=== PATIENT | female | born 1950 | race Caucasian/White ===

== ENCOUNTER → 2017-08-09 | Outpatient (CLI) | payer BC, MEDICARE ==
[~2017-08-09] MED LIST: ALLO100 PO; ALLO300 PO; ALPR.25 PO; ALPR.5 PO; Apidra Sol100 UNIT/1; Apidra100 UNIT/2 SC; CIPR500 PO; Crestor20 MG PO; DULO30 PO; ENOX40I SC; HYDACE5 PO; Humalog Mi100 UNIT/5 SC; INSULANPEN; METO100ER PO; ONDA4ODT MM; OXYC5 PO; RAMI5; RAMI5 PO; ROSU10TA PO; RXHYDACE PO; Ramipril10 MG PO; SERT100; SOLI5 PO; TOUJEO SOL300 UNIT/1 SC; VENL150ER PO; VENL75ER PO; XARELTO20 MG PO
[2017-08-09 11:55] LABS: BASOPHILS ABSOLUTE AUTO 0.04 K/mm3 (0.00-0.23); BASOPHILS PERCENT AUTO 1 % (0-2); EOSINOPHILS ABSOLUTE AUTO 0.17 K/mm3 (0.00-0.68); EOSINOPHILS PERCENT AUTO 3 % (0-6); Hematocrit 41.8 % (33.0-51.0); IMMATURE GRAN ABSOLUTE AUTO 0.03 K/mm3 (0.00-0.10); IMMATURE GRAN PERCENT AUTO 0 % (0-1); LYMPHOCYTES ABSOLUTE AUTO 1.47 K/mm3 (0.84-5.20); LYMPHOCYTES PERCENT AUTO 22 % (21-46); MONOCYTES ABSOLUTE AUTO 0.56 K/mm3 (0.16-1.47); MONOCYTES PERCENT AUTO 8 % (4-13); Mean Corpuscular HGB 30.8 pg (26.0-34.0); Mean Corpuscular HGB Conc 33.5 g/dL (31.5-36.5); Mean Corpuscular Volume 92 fL (80-100); Mean Platelet Volume 12.8 fL (9.1-12.4); NEUTROPHILS ABSOLUTE AUTO 4.55 K/mm3 (1.96-9.15); NEUTROPHILS PERCENT AUTO 67 % (41-73); Platelet Count 219 K/mm3 (150-400); RDW Coefficient Variation 14.2 % (11.7-14.2); RDW Standard Deviation 47.5 fL (35.1-46.3); Red Blood Cell Count 4.55 M/mm3 (3.80-5.20); White Blood Cell Count 6.82 K/mm3 (4.00-11.30)
[2017-08-09 12:13] LABS: Anion Gap 10 mmol/L (6-16); Blood Urea Nitrogen 21 mg/dL (8-24); Bun/Creatinine Ratio 18.6 (12.0-20.0); CO2, Blood 25 mmol/L (21-32); Calcium, Blood 9.6 mg/dL (8.5-10.1); Chloride, Blood 105 mmol/L (98-108); Creatinine, Blood 1.13 mg/dL (0.40-1.00); Glomerular Filtration Rate 48 (60-); Glucose, Blood 126 mg/dL (70-99); Potassium, Blood 5.2 mmol/L (3.5-5.5); Sodium, Blood 140 mmol/L (136-145); Thyroid Stimulating Hormone 3.221 uIU/mL (0.360-4.800); Troponin I <0.017 ng/mL (0.000-0.040)
== END | disposition home or self-care (01) ==
LOC: LAB EV 11:49
PROVIDERS: Family Medicine
DX: I48.91 Unspecified atrial fibrillation (principal)
CPT/HCPCS: 80048; 83880; 84443; 84484; 85025

== ENCOUNTER → 2017-09-14 | Outpatient (CLI) | payer BC, MEDICARE ==
[~2017-09-14] MED LIST changes: -ALPR.5 PO; -Crestor20 MG PO; -Humalog Mi100 UNIT/5 SC; -VENL150ER PO; -XARELTO20 MG PO
[2017-09-14 14:46] LABS: Source, Urine Clean Catch
[2017-09-14 15:07] LABS: Bacteria Mod /hpf; Red Blood Cells, Urine 0-2 /hpf (0-2); Squamous Epithelial Cells Many /hpf (Few)
== END | disposition home or self-care (01) ==
LOC: LAB SHORT 14:44 → LAB EV 14:44
PROVIDERS: Physician Assistant
DX: R30.0 Dysuria (principal)
CPT/HCPCS: 81015; 87077; 87086; 87186

== ENCOUNTER → 2018-01-19 | Outpatient (CLI) | payer BC, MEDICARE | LOC: LAB EV 16:15 → LAB SHORT 16:15 | DX: N39.0 Urinary tract infection, site not specified (principal) | CPT/HCPCS: 87077; 87086; 87186 ==

== ENCOUNTER → 2018-02-11 | Outpatient (CLI) | payer BC, MEDICARE | END | disposition home or self-care (01) | LOC: LAB SHORT 17:45 → LAB EV 17:45 | DX: N39.0 Urinary tract infection, site not specified (principal) | CPT/HCPCS: 87086 ==

== ENCOUNTER → 2018-02-24 | Outpatient (CLI) | payer BC, MEDICARE | END | disposition home or self-care (01) | LOC: PLD 07:25 → LAB SHORT 07:25 | DX: D22.39 Melanocytic nevi of other parts of face (principal); L82.1 Other seborrheic keratosis | CPT/HCPCS: 88305 ==

== ENCOUNTER → 2018-05-13 | Outpatient (CLI) | payer BC, MEDICARE ==
[~2018-05-13] MED LIST changes: +ALPR.5 PO; +Crestor20 MG PO; +Humalog Mi100 UNIT/5 SC; +VENL150ER PO; +XARELTO20 MG PO
== END | disposition home or self-care (01) ==
LOC: LAB EV 14:15 → LAB SHORT 14:15
DX: R30.0 Dysuria (principal)
CPT/HCPCS: 87077; 87086; 87186

== ENCOUNTER 2018-05-16 09:52 | Day surgery (SDC) | payer BC, MEDICARE ==
[~2018-05-16] VITALS: Ht 177.8 cm; Wt 146.5 kg
[~2018-05-16 09:52] MED LIST changes: -Humalog Mi100 UNIT/5 SC; -VENL150ER PO; -XARELTO20 MG PO
[2018-05-16] MEDS ORDERED: VENL150ER PO (10:36)
[2018-05-16] MEDS ORDERED: Humalog Mi100 UNIT/5 SC (10:38)
[2018-05-16] MEDS ORDERED: XARELTO20 MG PO (10:39)
== END 2018-05-16 12:55 | disposition home or self-care (01) ==
LOC: ORSCSDS 09:52
PROVIDERS: Orthopaedic Surgery
PROC: 01N50ZZ Release Median Nerve, Open Approach (ICD-10-PCS; principal; 2018-05-16 11:15)
DX: G56.02 Carpal tunnel syndrome, left upper limb (principal); G47.33 Obstructive sleep apnea (adult) (pediatric); I10 Essential (primary) hypertension; E11.9 Type 2 diabetes mellitus without complications; E66.01 Morbid (severe) obesity due to excess calories; Z68.42 Body mass index [BMI] 45.0-49.9, adult; Z79.899 Other long term (current) drug therapy
CPT/HCPCS: 82947; J0690; J2250; J3010; J7120

== ENCOUNTER → 2018-08-07 | Outpatient (CLI) | payer BC, MEDICARE ==
[~2018-08-07] MED LIST changes: +Humalog Mi100 UNIT/5 SC; +VENL150ER PO; +XARELTO20 MG PO
== END ==
LOC: LAB SHORT 09:59 → LAB EV 09:59
DX: N39.0 Urinary tract infection, site not specified (principal)
CPT/HCPCS: 87077; 87086; 87186

== ENCOUNTER → 2019-04-14 | Outpatient (CLI) | payer BC, MEDICARE ==
[2019-04-16 15:08] LABS: HPV 16 Negative (Negative); HPV 18 Negative (Negative); HPV OTHER HR TYPES Negative (Negative)
== END | disposition home or self-care (01) ==
LOC: LAB 11:45 → LAB SHORT 11:45
PROVIDERS: Obstetrics & Gynecology
DX: Z01.419 Encounter for gynecological examination (general) (routine) without abnormal findings (principal)
CPT/HCPCS: 87624; G0123

== ENCOUNTER → 2019-05-28 | Outpatient (CLI) | payer BC, MEDICARE | END | disposition home or self-care (01) | LOC: LAB EV 15:55 → LAB SHORT 15:55 | DX: R30.0 Dysuria (principal); R30.9 Painful micturition, unspecified | CPT/HCPCS: 87077; 87086; 87186 ==

== ENCOUNTER → 2019-08-28 | Outpatient (CLI) | payer BC, MEDICARE | END | disposition home or self-care (01) | LOC: LAB SHORT 16:29 → LAB EV 16:29 | DX: R30.9 Painful micturition, unspecified (principal) | CPT/HCPCS: 87077; 87086; 87186 ==

== ENCOUNTER → 2019-09-16 | Outpatient (CLI) | payer BC, MEDICARE | END | disposition home or self-care (01) | LOC: LAB EV 18:01 → LAB SHORT 18:01 | DX: R30.0 Dysuria (principal) | CPT/HCPCS: 87086 ==

== ENCOUNTER → 2019-11-05 | Outpatient (CLI) | payer BC, MEDICARE | END | disposition home or self-care (01) | LOC: LAB EV 18:08 → LAB SHORT 18:08 | DX: N39.0 Urinary tract infection, site not specified (principal) | CPT/HCPCS: 87077; 87086; 87186 ==

== ENCOUNTER → 2020-03-16 | Outpatient (CLI) | payer BC, MEDICARE | END | disposition home or self-care (01) | LOC: LAB SHORT 10:50 → LAB EV 10:50 | DX: N39.0 Urinary tract infection, site not specified (principal) | CPT/HCPCS: 87077; 87086; 87186 ==

== ENCOUNTER 2020-06-17 10:51 | Day surgery (SDC) | payer BC, MEDICARE ==
[~2020-06-17] VITALS: Ht 177.8 cm; Wt 141.3 kg
[2020-06-17] MEDS ORDERED: DULO60 (12:16)
== END 2020-06-17 13:40 | disposition home or self-care (01) ==
LOC: ORSCSDS 10:51
PROVIDERS: Internal Medicine Gastroenterology
PROC: 0DBM8ZX Excision of Descending Colon, Via Natural or Artificial Opening Endoscopic, Diagnostic (ICD-10-PCS; principal; 2020-06-17 12:00)
DX: R19.7 Diarrhea, unspecified (principal); Z86.010 Personal history of colon polyps; D12.4 Benign neoplasm of descending colon; K57.30 Diverticulosis of large intestine without perforation or abscess without bleeding; K64.8 Other hemorrhoids; I10 Essential (primary) hypertension; K21.9 Gastro-esophageal reflux disease without esophagitis; I48.91 Unspecified atrial fibrillation; E11.9 Type 2 diabetes mellitus without complications; E66.01 Morbid (severe) obesity due to excess calories; Z68.41 Body mass index [BMI] 40.0-44.9, adult; Z79.4 Long term (current) use of insulin; Z79.899 Other long term (current) drug therapy
CPT/HCPCS: 82947; 88305; J2704; J7120

== ENCOUNTER 2020-09-15 23:59 | Emergency (ER) | payer BC, MEDICARE ==
[~2020-09-15] VITALS: Ht 177.8 cm; Wt 136.1 kg
[~2020-09-15 23:59] MED LIST changes: +DULO60
== END 2020-09-16 00:46 | disposition home or self-care (01) ==
LOC: ER 23:59
DX: S60.453A Superficial foreign body of left middle finger, initial encounter (principal); I10 Essential (primary) hypertension; E11.9 Type 2 diabetes mellitus without complications; E78.5 Hyperlipidemia, unspecified; E03.9 Hypothyroidism, unspecified; Z88.2 Allergy status to sulfonamides; Z88.6 Allergy status to analgesic agent; Z88.5 Allergy status to narcotic agent; Z79.4 Long term (current) use of insulin; Z88.1 Allergy status to other antibiotic agents; W45.8XXA Other foreign body or object entering through skin, initial encounter
CPT/HCPCS: 99282

== ENCOUNTER → 2021-01-24 | Outpatient (CLI) | payer BC, MEDICARE ==
[2021-01-24 16:50] LABS: Source, Urine Voided
[2021-01-24 17:43] LABS: Appearance, Urine Clear (Clear); Bilirubin, Urine Neg (Neg); Blood, Urine Neg (Neg); Color, Urine Yellow (P-Yellow); Glucose Qualitative, Urine Neg (Neg); Ketones, Urine Neg (Neg); Leukocyte Esterase, Urine 1+ (Neg); Nitrite, Urine Neg (Neg); Protein, Urine 2+ (Neg); Urobilinogen, Urine NORM (Normal)
[2021-01-24 17:52] LABS: Bacteria Many /hpf
[2021-01-24 17:53] LABS: Red Blood Cells, Urine Rare /hpf (0-2); Squamous Epithelial Cells Mod /hpf (Few); White Blood Cells, Urine 0-2 /hpf (0-5)
== END ==
LOC: LAB SHORT 16:48 → LAB 16:48
PROVIDERS: Family Medicine
DX: R30.0 Dysuria (principal)
CPT/HCPCS: 81001; 87086

== ENCOUNTER → 2021-11-02 | Outpatient (CLI) | payer OTHER, MEDICARE | END | disposition home or self-care (01) | LOC: LAB 16:31 → LAB SHORT 16:31 | DX: R39.15 Urgency of urination (principal) | CPT/HCPCS: 87077; 87086; 87186 ==

== ENCOUNTER 2022-02-24 17:34 | Emergency (ER) | payer OTHER, MEDICARE ==
[~2022-02-24] VITALS: Ht 177.8 cm; Wt 141.5 kg
== END 2022-02-24 21:01 | disposition home or self-care (01) ==
LOC: ER 17:34
DX: N93.9 Abnormal uterine and vaginal bleeding, unspecified (principal); I10 Essential (primary) hypertension; E11.9 Type 2 diabetes mellitus without complications; E78.5 Hyperlipidemia, unspecified; Z88.2 Allergy status to sulfonamides; Z88.5 Allergy status to narcotic agent; Z88.1 Allergy status to other antibiotic agents; Z88.8 Allergy status to other drugs, medicaments and biological substances; Z88.6 Allergy status to analgesic agent; Z79.899 Other long term (current) drug therapy; Z79.4 Long term (current) use of insulin; Z79.01 Long term (current) use of anticoagulants
CPT/HCPCS: 36415; 76830; 76856; 86850; 86900; 86901; 99284-25; J7030

== ENCOUNTER → 2022-02-24 | Outpatient (CLI) | payer OTHER, MEDICARE ==
[2022-02-24 16:49] LABS: BASOPHILS ABSOLUTE AUTO 0.07 K/mm3 (0.00-0.23); BASOPHILS PERCENT AUTO 1 % (0-2); EOSINOPHILS ABSOLUTE AUTO 0.16 K/mm3 (0.00-0.68); EOSINOPHILS PERCENT AUTO 2 % (0-6); Hematocrit 41.9 % (33.0-51.0); Hemoglobin 13.8 g/dL (11.5-16.0); IMMATURE GRAN ABSOLUTE AUTO 0.04 K/mm3 (0.00-0.10); IMMATURE GRAN PERCENT AUTO 1 % (0-1); LYMPHOCYTES PERCENT AUTO 30 % (21-46); MONOCYTES ABSOLUTE AUTO 0.66 K/mm3 (0.16-1.47); MONOCYTES PERCENT AUTO 9 % (4-13); Mean Corpuscular HGB Conc 32.9 g/dL (31.5-36.5); Mean Corpuscular Volume 94 fL (80-100); Mean Platelet Volume 12.4 fL (9.1-12.4); NEUTROPHILS ABSOLUTE AUTO 4.35 K/mm3 (1.96-9.15); NEUTROPHILS PERCENT AUTO 58 % (41-73); Platelet Count 192 K/mm3 (150-400); RDW Coefficient Variation 13.8 % (11.7-14.2); RDW Standard Deviation 47.3 fL (35.1-46.3); Red Blood Cell Count 4.45 M/mm3 (3.80-5.20); White Blood Cell Count 7.58 K/mm3 (4.00-11.30)
[2022-02-24 17:06] LABS: Albumin, Blood 3.2 g/dL (3.4-5.0); Albumin/Globulin Ratio 0.7 (0.8-1.8); Bilirubin, Total 0.7 mg/dL (0.1-1.0); Bun/Creatinine Ratio 18.4 (12.0-20.0); Calcium, Blood 9.3 mg/dL (8.5-10.1); Creatinine, Blood 1.85 mg/dL (0.40-1.00); Globulin, Blood 4.6 g/dL (2.2-4.0); Thyroid Stimulating Hormone 2.745 uIU/mL (0.360-4.800); Total Protein, Blood 7.8 g/dL (6.4-8.2)
== END | disposition home or self-care (01) ==
LOC: LAB 16:44 → LAB SHORT 16:44
PROVIDERS: Physician Assistant
DX: R53.83 Other fatigue (principal)
CPT/HCPCS: 80053; 84443; 85025; 87077; 87086; 87186

== ENCOUNTER → 2022-02-28 | Outpatient (CLI) | payer OTHER, MEDICARE | END | disposition home or self-care (01) | LOC: LAB 12:41 → LAB SHORT 12:41 | DX: N95.0 Postmenopausal bleeding (principal) | CPT/HCPCS: 88305 ==

== ENCOUNTER → 2022-06-05 | Outpatient (CLI) | payer OTHER, MEDICARE | END | disposition home or self-care (01) | LOC: LAB 17:40 → LAB SHORT 17:40 | DX: N39.0 Urinary tract infection, site not specified (principal) | CPT/HCPCS: 87077; 87086; 87147; 87186 ==

== ENCOUNTER → 2022-09-12 | Outpatient (CLI) | payer OTHER, MEDICARE | END | disposition home or self-care (01) | LOC: LAB SHORT 19:02 → LAB 19:02 | DX: R30.0 Dysuria (principal) | CPT/HCPCS: 87077; 87086; 87186 ==

== ENCOUNTER → 2023-05-07 | Outpatient (CLI) | payer OTHER, MEDICARE ==
[2023-05-07 15:04] LABS: Creatinine, Urine Random 60.4 mg/dL (27.00-270.00); Protein, Urine Random 14.3 mg/dL (0.0-11.9); Protein/Creat Ratio, Ur Random 0.2
== END ==
LOC: LAB SHORT 08:00 → LAB 08:00
PROVIDERS: Internal Medicine Nephrology
DX: N18.32 Chronic kidney disease, stage 3b (principal)
CPT/HCPCS: 82570; 84156

== ENCOUNTER → 2024-02-27 | Outpatient (CLI) | payer OTHER ==
[2024-02-27 10:09] LABS: Source, Urine Clean Catch
[2024-02-27 10:53] LABS: Bilirubin, Urine Neg (Neg); Blood, Urine 2+ (Neg); Glucose Qualitative, Urine Neg (Neg); Ketones, Urine Neg (Neg); Leukocyte Esterase, Urine Neg (Neg); Nitrite, Urine Neg (Neg); Protein, Urine Neg (Neg); Specific Gravity, Urine 1.015 (1.003-1.022); Urobilinogen, Urine NORM (Normal)
[2024-02-27 11:52] LABS: Appearance, Urine Hazy (Clear); Color, Urine Yellow (P-Yellow)
[2024-02-27 11:53] LABS: Bacteria Few /hpf; Squamous Epithelial Cells Few /hpf (Few); White Blood Cells, Urine 0-2 /hpf (0-5)
== END | disposition home or self-care (01) ==
LOC: LAB SHORT 10:05 → LAB 10:05
PROVIDERS: Hospitalist
DX: R82.90 Unspecified abnormal findings in urine (principal)
CPT/HCPCS: 81001; 87086

== ENCOUNTER 2025-02-16 13:12 | Day surgery (SDC) | payer OTHER, MEDICARE ==
[~2025-02-16 13:12] MED LIST changes: +Glycopyrrolate 0.2 MG/ML 1MLVIAL ONE; +Ondansetron HCl 2 MG / ML 2ML Vial ONE; +SOAANZ20 M1; +ePHEDrine Sulfate 50 MG/ML 1ML Injection ONE
[2025-02-16] MEDS ORDERED: TOUJEO MAX300 UNIT/2 (14:09)
[2025-02-16] MEDS ORDERED: MOUNJARO2.5 MG/0.5 (14:11)
[2025-02-16] MEDS ORDERED: DUPIXENT300 MG/21 (14:12)
[2025-02-16] MEDS ORDERED: OXYB5 (14:13)
[2025-02-16] MEDS ORDERED: CALC.25 (14:13)
[2025-02-16] MEDS ORDERED: FIASP 100100 UNIT/3 (14:14)
[2025-02-16 15:33] VITALS: BP 97/60
== END 2025-02-16 15:50 | disposition home or self-care (01) ==
LOC: ORSCSDS 13:12
PROVIDERS: Specialist
PROC: 0DB98ZX Excision of Duodenum, Via Natural or Artificial Opening Endoscopic, Diagnostic (ICD-10-PCS; principal; 2025-02-16 15:00)
PROC: 0DJD8ZZ Inspection of Lower Intestinal Tract, Via Natural or Artificial Opening Endoscopic (ICD-10-PCS; principal; 2025-02-16 15:00)
PROC: 0D758ZZ Dilation of Esophagus, Via Natural or Artificial Opening Endoscopic (ICD-10-PCS; principal; 2025-02-16 15:00)
PROC: 0DB58ZX Excision of Esophagus, Via Natural or Artificial Opening Endoscopic, Diagnostic (ICD-10-PCS; principal; 2025-02-16 15:00)
PROC: 0DB78ZX Excision of Stomach, Pylorus, Via Natural or Artificial Opening Endoscopic, Diagnostic (ICD-10-PCS; principal; 2025-02-16 15:00)
DX: K21.9 Gastro-esophageal reflux disease without esophagitis (principal); R13.10 Dysphagia, unspecified; K29.70 Gastritis, unspecified, without bleeding; K44.9 Diaphragmatic hernia without obstruction or gangrene; Z12.11 Encounter for screening for malignant neoplasm of colon; Z86.0101 Personal history of adenomatous and serrated colon polyps; K57.30 Diverticulosis of large intestine without perforation or abscess without bleeding; K64.8 Other hemorrhoids; K76.0 Fatty (change of) liver, not elsewhere classified; G47.33 Obstructive sleep apnea (adult) (pediatric); I10 Essential (primary) hypertension; F32.A Depression, unspecified; I50.9 Heart failure, unspecified; Z79.4 Long term (current) use of insulin; Z79.899 Other long term (current) drug therapy; Z79.85 Long-term (current) use of injectable non-insulin antidiabetic drugs; Z79.01 Long term (current) use of anticoagulants; E11.22 Type 2 diabetes mellitus with diabetic chronic kidney disease; I12.9 Hypertensive chronic kidney disease with stage 1 through stage 4 chronic kidney disease, or unspecified chronic kidney disease; N18.9 Chronic kidney disease, unspecified; E78.5 Hyperlipidemia, unspecified
CPT/HCPCS: 43248; 43239; G0105; 82947; 88305; 88342; C1769; J0461; J2003; J2405; J2704; J7120